=== PATIENT | male | born 1980 | race Caucasian/White ===

== ENCOUNTER 2019-01-17 22:51 | Emergency (ER) | payer OTHER ==
[~2019-01-17] VITALS: Ht 175.3 cm; Wt 68.2 kg
[2019-01-17 22:55] VITALS: BP 131/77; TEMP 97.8
[2019-01-17] MEDS ORDERED: XANAX 0.5MG0.5 MG PO (23:10)
[2019-01-18] MEDS ORDERED: CEPHALEXIN500 M1 PO (00:28)
[2019-01-18 00:45] VITALS: PULSE 95
== END 2019-01-18 00:50 | disposition home or self-care (01) ==
LOC: COL.ER 22:51
DX: S66.922A Laceration of unspecified muscle, fascia and tendon at wrist and hand level, left hand, initial encounter (principal); F32.9 Major depressive disorder, single episode, unspecified; F41.9 Anxiety disorder, unspecified; Z23 Encounter for immunization; F17.210 Nicotine dependence, cigarettes, uncomplicated; W01.0XXA Fall on same level from slipping, tripping and stumbling without subsequent striking against object, initial encounter; W26.8XXA Contact with other sharp object(s), not elsewhere classified, initial encounter; Y92.009 Unspecified place in unspecified non-institutional (private) residence as the place of occurrence of the external cause
CPT/HCPCS: Q4021